=== PATIENT | male | born 1980 | race Caucasian/White ===

== ENCOUNTER 2017-12-22 17:05 | Emergency (ER) | payer OTHER ==
--- NOTE | 2017-12-22 18:16 | EDM.PDOC ---
ED HPI GENERAL MEDICAL PROBLEM - General Chief Complaint: Upper Extremity Injury/Pain Stated Complaint: LEFT HAND INJURY Time Seen by Provider: 12/22/17 17:37 Source of Information: Reports: Patient History Limitations: Reports: No Limitations - History of Present Illness INITIAL COMMENTS - FREE TEXT/NARRATIVE: 37-year-old male presents for evaluation and treatment of injury to the left hand second finger. Injury occurred at work. Patient reports that he was using a screwdriver when it slipped and went through his glove and into his left hand. He does acknowledge that this actually could've been a knife that caused the injury. Patient has swelling and bruising across the left hand ventral MCPs. He has full range of motion of fingers 1, 3, 4 and 5. decreased range of motion of finger 2. Reports some numbness and tingling to the finger 2. Tetanus is up-to-date. Patient is right-handed. Left Hand Pain Score (Numeric/FACES): 5 - Related Data Allergies Allergy/AdvReac Type Severity Reaction Status Date / Time No Known Allergies Allergy Verified 12/22/17 17:11 Home Meds: Home Meds Acetaminophen/oxyCODONE [Percocet 325-5 MG] 1 tab PO Q4HR PRN #12 tab 12/22/17 [ Rx] Dextroamphetamine/Amphetamine [Adderall] 30 mg PO DAILY 12/22/17 [History] Doxycycline [Vibramycin] 100 mg PO BID #20 cap 12/22/17 [Rx] Past Medical History - Past Health History Medical/Surgical History: Denies Medical/Surgical History - Past Surgical History HEENT Surgical History: Reports: Tonsillectomy Social & Family History - Tobacco Use Smoking Status *Q: Never Smoker - Recreational Drug Use Recreational Drug Use: No Review of Systems - Review of Systems Review Of Systems: See Below Musculoskeletal: Reports: Hand Pain (left hand) Skin: Reports: Wound (left hand ventral aspect proximal phalnex) Neurological: Reports: Numbness (left hand 2nd finger), Tingling (left hand 2nd finger) ED EXAM, GENERAL - Physical Exam Exam: See Below Exam Limited By: No Limitations General Appearance: Alert, WD/WN, No Apparent Distress Respiratory/Chest: No Respiratory Distress Cardiovascular: Normal Peripheral Pulses Peripheral Pulses: 2+: Radial (L), Radial (R) Extremities: Normal Capillary Refill, Limited Range of Motion (unable to flex the left hand 2nd finger DIP joint; able to flex and extend all other fingers; able to adduct and abduct fingers and oppose fingers to thumb) Neurological: Alert, Oriented, Normal Cognition, Normal Gait, Other ( reportsgood sensation to tlight touch to the left hand and left fingers) Psychiatric: Normal Affect, Normal Mood Skin Exam: Warm, Dry, Normal Color, Ecchymosis (and swelling along the ventral MCPs joints 2-5), Other (1cm cheveron shaped wound to the left ventral lateral hand over the MCP joint) ED TRAUMA EXTREMITY PROCEDURES - Laceration/Wound Repair Left Lateral Ventral Hand Lac/Wound Length In cm: 1 Appearance: Subcutaneous, Irregular (cheveron shaped), Clean Distal NVT: Neuro & Vascular Intact, No Tendon Injury (suspected injury to the flexor digitorum profundus tendon left hand 2nd finger) Anesthetic Type: Local Local Anesthesia - Lidocaine (Xylocaine): 1% Plain Local Anesthetic Volume: 2cc Skin Prep: Chlorhexidine (Hibiciens), Saline, Sterile Drape Saline Irrigation (cc's): 50 Exploration/Debridement/Repair: Wound Explored, No Foreign Material Found Closed With: Sutures Suture Size: other (5-0) Suture Type: Nylon, Interrupted, Simple Sterile Dressing Applied: Provider Tetanus Status Addressed: Yes Complications: No - Splinting Left Upper Extremity Splint Site: left hand and forearm Pre-Procedure NV Status: Normal Post-Procedure NV Status: Normal Splint Material: Other (orthoglass) Splint Design: Gutter (radial) Applied & Form Fitted By: Provider, Ordnance Engineer (Nick MORAN) Provider Post-Splint Application NV Check: NV Status Normal, Good Position Complications: No Course - Vital Signs Last Recorded V/S: Last Vital Signs Temp 98.1 F 12/22/17 17:12 Pulse 78 12/22/17 17:12 Resp 18 12/22/17 17:12 BP 120/86 12/22/17 17:12 Pulse Ox 100 12/22/17 17:12 - Orders/Labs/Meds Orders: Active Orders 24 hr Category Date Time Status Hand Comp Min 3V Lt [CR] Stat Exams 12/22/17 17:45 Taken Meds: Medications Discontinued Medications Generic Name Dose Route Start Last Admin Trade Name Freq PRN Reason Stop Dose Admin Lidocaine HCl 20 ml 12/22/17 18:28 12/22/17 19:36 Xylocaine 1% INJECT 12/22/17 18:29 20 ml ONETIME ONE Administration Lidocaine HCl Confirm 12/22/17 18:39 12/22/17 19:36 Xylocaine 1% Administered 12/22/17 18:40 Not Given Dose 50 ml .ROUTE .STK-MED ONE - Radiology Interpretation Free Text/Narrative:: xray of the left hand shows no acute fractures or dislocations. No foreign body identified. - Re-Assessments/Exams Free Text/Narrative Re-Assessment/Exam: 12/22/17 19:10 I discussed the x-ray results of the patient. I'm concerned that he cut his has flexor digitorum profundus tendon. I discussed the case with Dr. Tyler Morris at [facility] [place]. We will place 2 sutures to go wound and splint the finger and a gutter splint. He states that the hand surgeon is working on . Recommended calling right away morning and be nothing by mouth. He stated that he should drive to [place] and plan to be seen by either one of the hand surgeons or their nurse practitioner. 2 sutures were placed to the left ventral hand at the base of the proximal phalanx. Patient tolerated the procedure well. Patient's tetanus is up-to-date. Patient was then placed in a radial gutter splint. Will discharge patient home at this time. Discharge instructions document. Departure - Departure Time of Disposition: 19:15 Disposition: Home, Self-Care 01 Condition: Fair Clinical Impression: Injury of flexor tendon of left hand Qualifiers: Encounter type: initial encounter Qualified Code(s): S66.802A - Unspecified injury of other specified muscles, fascia and tendons at wrist and hand level, left hand, initial encounter - Discharge Information Prescriptions: Acetaminophen/oxyCODONE [Percocet 325-5 MG] 1 tab PO Q4HR PRN #12 tab PRN Reason: Pain Doxycycline [Vibramycin] 100 mg PO BID #20 cap Instructions: Laceration Care, Adult Referrals: PCP,None [Primary Care Provider] - Higinio Esteban MD [Ordering Only Provider] - Forms: ED Department Discharge Additional Instructions: Wear the splint at all times. Keep covered when in the shower or around water with a bag or Saran wrap. Doxycycline 1 Twice a day for 10 day. This medication can cause photosensitivity make sure are wearing plenty of sunscreen or avoid the sun. Make sure you take this medication with food. [id number] Tylenol or Motrin as needed for pain relief. For pain not relieved by Tylenol or Motrin you may take Percocet 1 or 2 tabs every 4-6 hours as needed for severe pain. Percocet is habit-forming, take as few these as needed to control your pain. Do not drive or operate machinery within 12 hours of taking Percocet. Do not take more than 3200 mg of ibuprofen from all sources in 1 day. Do not take more neno 4 g of Tylenol from all sources in 1 day. [facility] on . Recommend seen Dr. Esteban or Dr. Diehl. These 2 are the hand specialist there. Call [phone] to schedule with them. Recommend going on right away in the morning. They will see you on . Call for location an appointment. Make sure you have not had anything to eat or drink as is possible they may operate on you on . Please return to the ER if your symptoms change or worsen. - My Orders Last 24 Hours: My Active Orders 12/22/17 17:45 Hand Comp Min 3V Lt [CR] Stat - Assessment/Plan Last 24 Hours: My Active Orders 12/22/17 17:45 Hand Comp Min 3V Lt [CR] Stat
[2017-12-22] MEDS ORDERED: Lidocaine 1% 20 ML MDV INJECT ONE (18:28)
[2017-12-22] MEDS ORDERED: Lidocaine 1% 50 ML MDV ONE (18:39)
--- NOTE | 2017-12-28 08:20 | CR ---
Left hand: Four views of the left hand were obtained. Comparison: No prior study. Joint spaces are preserved. Slight deformity which is felt compatible with old injury is seen off the corner base of the distal phalanx of the third finger. Soft tissue air is seen within the second finger compatible with soft tissue injury. No acute fracture or other bony abnormality is seen. Impression: 1. Soft tissue air within the second digit. This presumably is due to soft tissue injury. Please correlate. 2. Old injury as noted above. 3. No acute bony abnormality is identified. Diagnostic code #2
== END 2017-12-22 19:35 | disposition home or self-care (01) ==
LOC: JD.ED 17:05 → MERGE 17:05 → JD.ED 19:35
DX: S66.802A Unspecified injury of other specified muscles, fascia and tendons at wrist and hand level, left hand, initial encounter (principal); Y99.0 Civilian activity done for income or pay; Z79.899 Other long term (current) drug therapy; W26.8XXA Contact with other sharp object(s), not elsewhere classified, initial encounter
CPT/HCPCS: 12001; 29125; 73130-26-LT; 73130-LT; 99283-25; 99284-25